=== PATIENT | female | born 1960 | race Caucasian/White ===

== ENCOUNTER 2018-11-06 13:50 | Emergency (ER) | payer SELFPAY ==
--- NOTE | 2018-11-06 14:20 | RAD ---
Exam: Single view of the chest and 2 views of the abdomen HISTORY: Abdominal pain and constipation starting 3 days ago COMPARISON: None FINDINGS: 2 views of the abdomen and a single view the chest shows a nonspecific, nonobstructive jabari l gas pattern. Air is seen to the level of the rectum. No significant stool retention is seen in the colon. No free air or air-fluid levels are seen and upright examination. The cardiomediastinal silhouette is normal in size. There is no evidence of consolidation, mass, or p leural effusion. IMPRESSION: Nonobstructive bowel gas pattern
== END 2018-11-06 14:55 | disposition home or self-care (01) ==
LOC: ERS 13:50
DX: K59.00 Constipation, unspecified (principal); R11.0 Nausea; M54.9 Dorsalgia, unspecified; F41.9 Anxiety disorder, unspecified; F32.9 Major depressive disorder, single episode, unspecified; I10 Essential (primary) hypertension; J44.9 Chronic obstructive pulmonary disease, unspecified; F17.210 Nicotine dependence, cigarettes, uncomplicated
CPT/HCPCS: 74022